=== PATIENT | male | born 1965 | race Caucasian/White ===

== ENCOUNTER 2024-07-20 00:23 | Observation (INO) | payer MEDICAID, SELFPAY ==
[2024-07-20] VITALS (62 sets, daily range): BP systolic 123–161; BP diastolic 61–99; PULSE 67–90; RESP 9–22; TEMP 35.8–37.3; O2SAT 94–99
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
[2024-07-20 00:38] LABS: Abs Immature Grans 0.19 10^3/uL (0.0-0.06); Absolute Basophil Count 0.02 10^3/uL (0.0-0.2); Absolute Eosinophil Count 0.16 10^3/uL (0.0-0.7); Absolute Lymphocyte Count 1.76 10^3/uL (1.2-3.4); Absolute Monocyte Count 1.39 10^3/uL (0.1-0.8); Absolute Neutrophil Count 4.56 10^3/uL (1.2-6.7); Basophils % 0.2 %; HCT 45.2 % (40.0-50.0); Immature Grans % 2.4 %; Lymphocytes % 21.8 %; MCH 28.5 pg (27.0-33.0); MCHC 33.2 % (32.0-36.0); MCV 86 fL (80-95); MPV 9.9 fL (8.0-11.0); Monocytes % 17.2 %; Neutrophils % 56.4 %; Platelet Count 174 10^3/uL (130-400); RBC 5.27 10^6/uL (4.36-5.78); RDW 12.9 % (11.8-14.1); RDW-SD 40.2 fL; WBC 8.08 10^3/uL (4.4-10.8)
[2024-07-20] MEDS: Normal Saline - Diluent 50 ML VIAL IJ (00:41)
[2024-07-20] MEDS: Omnipaque 350 MG/ML 100 ML BTL IJ (00:42)
[2024-07-20 00:54] LABS: INR 1.1 (0.9-1.1); PTT Activated 24.7 sec (23.6-32.8); Prothrombin Time 11.2 sec (9.1-11.1)
[2024-07-20 00:59] LABS: ALT 21 U/L (16-63); AST 20 U/L (15-37); Albumin 3.6 g/dL (3.4-5.0); Alkaline Phosphatase 59 U/L (46-116); Anion Gap 11.1 mmol/L (3-11); BUN 13 mg/dL (7-18); Bilirubin, Total 0.65 mg/dL (0.2-1.0); CO2 26.9 mmol/L (21.0-32.0); CREATININE 1.4 mg/dL (0.70-1.30); Calcium 8.7 mg/dL (8.5-10.1); Chloride 107 mmol/L (98-107); ETHANOL BLOOD < 3.0 mg/dL (<10); Estimated GFR 58.26 (mL/min/1.73m2); Glucose 129 mg/dL (74-106); Potassium 3.5 mmol/L (3.5-5.1); Sodium 145 mmol/L (136-145); Total Protein 7.7 g/dL (6.4-8.2)
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
--- OUTSIDE RECORDS SUMMARY | 2024-07-20 03:31 | XMS_ITS | Encounter Summary ---
Author Organization [facility] Address [address] [place] [address] Care Team Providers Care Amalgamator Name Role Phone Fortino Hendricks Primary Care Provider [phone] Encounter Details Date Type Department Care Team (Late st Contact Info) Description 10/25/2023 Telephone [facility] [address] [place] [address] Fortino Hendricks FNP [address] [place] [address] Social History Tobacco Use Types Packs/Day Years Used Date Smoking Tobacco: Never Assessed Sex and Gender Information Value Date Recorded Sex Assigned at Not on file Gender Identity Not on file Sexual Orientation Not on file documented as of this encounter Plan of Treatment Not on file documented as of this encounter Visit Diagnoses Not on filedocumented in this encounter Care Teams Amalgamator Relationship Specialty Start Date End Date Fortino Hendricks FNP [address] [place] [address] PCP - General Nurse Practitioner Family 10/25/23 documented as of this encounter
--- OUTSIDE RECORDS SUMMARY | 2024-07-20 03:31 | XMS_ITS | Clinical Summary ---
Author Organization [facility] Address [address] [place] [address] Care Team Providers Care Fire Crew Worker Name Role Phone Fortino Hendricks Primary Care Provider [phone] Social History Tobacco Use Types Packs/Day Years Used Date Smoking Tobacco: Never Assessed Sex and Gender Information Value Date Recorded Sex Assigned at Not on file Gender Identity Not on file Sexual Orientation Not on file Plan of Treatment Not on file Care Teams Fire Crew Worker Relationship Specialty Start Date End Date Fortino Hendricks FNP [address] [place] [address] PCP - General Nurse Practitioner Family 10/25/23
[2024-07-20 04:15] LABS: Abs Immature Grans 0.28 10^3/uL (0.0-0.06); Absolute Basophil Count 0.02 10^3/uL (0.0-0.2); Absolute Lymphocyte Count 1.51 10^3/uL (1.2-3.4); Absolute Monocyte Count 1.31 10^3/uL (0.1-0.8); Absolute Neutrophil Count 5.77 10^3/uL (1.2-6.7); Basophils % 0.2 %; Eosinophils % 1.1 %; HCT 43.9 % (40.0-50.0); HGB 14.7 g/dL (13.5-17.5); Immature Grans % 3.1 %; Lymphocytes % 16.8 %; MCH 28.5 pg (27.0-33.0); MCHC 33.5 % (32.0-36.0); MCV 85 fL (80-95); MPV 9.8 fL (8.0-11.0); Monocytes % 14.6 %; Neutrophils % 64.2 %; Platelet Count 184 10^3/uL (130-400); RBC 5.16 10^6/uL (4.36-5.78); RDW 12.9 % (11.8-14.1); WBC 8.99 10^3/uL (4.4-10.8)
[2024-07-20] MEDS: Acetaminophen 500 MG TAB 1000 MG PO ×2 (06:14→15:23)
[2024-07-20] MEDS: Normal Saline Flush 10 ML SYR IVP ×2 (08:59→12:54)
[2024-07-20] MEDS: Enoxaparin 40 MG/0.4 ML SYR SC (11:35)
[2024-07-20] MEDS: Ketorolac 30 MG/ML VIAL IVP (12:54)
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
== END 2024-07-20 16:26 | disposition home or self-care (01) ==
LOC: ER 03:37 → MS 03:42
PROVIDERS: Emergency Medicine; Admitting Provider Surgery; Emergency Provider Emergency Medicine; Visit Provider Surgery
DX: S31.113A Laceration without foreign body of abdominal wall, right lower quadrant without penetration into peritoneal cavity, initial encounter (principal); S41.012A Laceration without foreign body of left shoulder, initial encounter; X99.1XXA Assault by knife, initial encounter; I10 Essential (primary) hypertension; Z59.811 Housing instability, housed, with risk of homelessness
CPT/HCPCS: 36415; 71275; 80053; 86850; 86900; 86901; 96365; 96366; 96372; 96375; 99236; 99291; J1650; 71045; 74174; 80320; 85025; 85610; 85730; G0378; J0690; J1885; J3490